=== PATIENT | male | born 1960 | race American Indian/Alaskan Native ===

== ENCOUNTER 2019-04-04 08:19 | Inpatient (IN) | payer OTHER ==
[2019-04-04] MEDS ORDERED: ASPIRIN 325 MG TAB PO ONE (08:30)
[2019-04-04 09:05] LABS: Basophils # (Auto) 0.1 K/mm3 (0.0-0.1); Basophils % (Auto) 1.1 % (0.0-1.8); Eosinophils # (Auto) 0.2 K/mm3 (0.0-0.4); Eosinophils % (Auto) 3.6 % (0.0-4.3); Hematocrit 45.5 % (35.5-45.6); Hemoglobin 15.9 gm/dl (11.8-15.2); Lymphocytes # (Auto) 2.4 K/mm3 (1.2-5.4); Lymphocytes % (Auto) 42.1 % (13.4-35.0); Mean Corpuscular HGB Conc 35 % (32-34); Mean Corpuscular Volume 97 fl (84-94); Monocytes # (Auto) 0.5 K/mm3 (0.0-0.8); Platelet Count 335 K/mm3 (140-440); Red Blood Count 4.72 M/mm3 (3.65-5.03); Red Cell Distribution Width 15.4 % (13.2-15.2)
--- NOTE | 2019-04-04 09:26 | XRay Report ---
CHEST 1 VIEW INDICATION: Chest Pain. COMPARISON: None. FINDINGS: Support devices: None. Heart: Normal. Lungs/Pleura: Diffuse bilateral pulmonary opacities are predominantly reticular. These are of uncerta in chronicity. No focal consolidation, significant effusion, or pneumothorax. IMPRESSION: 1. Age-indeterminate diffuse increased interstitial/reticular markings. If this is acute, interstitia l pneumonitis or pulmonary edema could have this appearance. Signer Name: Sourav Romero MD Signed: 04/04/2019 9:21 AM Workstation Name: [id number]
[2019-04-04 09:35] LABS: BUN/Creatinine Ratio 9; Blood Urea Nitrogen 10 mg/dL (9-20); Calcium 8.7 mg/dL (8.4-10.2); Hemolysis Index 32
[2019-04-04] MEDS ORDERED: ASPIRIN 325 MG TAB ONE (14:33)
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
[2019-04-04] MEDS ORDERED: FUROSEMIDE 40 MG/4 ML INJ IV ONE (16:24)
[2019-04-04] MEDS ORDERED: ONDANSETRON 4 MG/2 ML INJ IV PRN (19:44)
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
[2019-04-04] MEDS: FUROSEMIDE 40 MG/4 ML INJ IV SCH (21:15)
[2019-04-04] MEDS: METOPROLOL TARTRATE 25 MG TAB PO SCH (22:44)
[2019-04-04] MEDS: LISINOPRIL 40 MG TAB PO SCH (22:44)
[2019-04-05] MEDS: FUROSEMIDE 40 MG/4 ML INJ IV SCH ×2 (05:58→17:00)
[2019-04-05 10:17] LABS: BUN/Creatinine Ratio 12; Blood Urea Nitrogen 13 mg/dL (9-20); Calcium 8.3 mg/dL (8.4-10.2); Hemolysis Index 29
[2019-04-05] MEDS: LISINOPRIL 40 MG TAB PO SCH (12:28)
[2019-04-05] MEDS: METOPROLOL TARTRATE 25 MG TAB PO SCH (12:29)
--- NOTE | 2019-04-05 14:04 | Consultation ---
History of Present Illness Consult date: 04/05/19 Consult reason: congestive heart failure History of present illness: This is a 59-year old male that reports a history of congestive heart failure first diagnosed 4-5 months ago at [facility]. Records are unavailable for cardiac review. Patient has been noncompliant with his medications and has not followed up with a lead front desk agent as an outpatient. He presented to this hospital with progressive shortness of breath, lower extremity edema, admitted with CHF exacerbation. Cardiac consultation has been requested. Medications and Allergies Allergies Allergy/AdvReac Type Severity Reaction Status Date / Time No Known Allergies Allergy Unverified 04/04/19 08:28 Active Meds: Active Medications Acetaminophen (Tylenol) 650 mg PO Q4H PRN PRN Reason: Pain MILD(1-3)/Fever >100.5/DAVID Furosemide (Lasix) 40 mg IV BID@0600,1800 [facility] Last Admin: 04/05/19 05:58 Dose: 40 mg Documented by: Lisinopril (Zestril) 40 mg PO QDAY [facility] Last Admin: 04/05/19 12:28 Dose: 40 mg Documented by: Metoprolol Tartrate (Metoprolol) 12.5 mg PO BID [facility] Last Admin: 04/05/19 12:29 Dose: 12.5 mg Documented by: Ondansetron HCl (Zofran) 4 mg IV Q8H PRN PRN Reason: Nausea And Vomiting Sodium Chloride (Sodium Chloride Flush Syringe 10 Ml) 10 ml IV BID [facility] Last Admin: 04/05/19 12:29 Dose: 10 ml Documented by: Sodium Chloride (Sodium Chloride Flush Syringe 10 Ml) 10 ml IV PRN PRN PRN Reason: LINE FLUSH Physical Examination Vital Signs Temp Pulse Resp BP Pulse Ox 97.6 F 96 H 16 186/126 97 04/04/19 08:23 04/04/19 08:23 04/04/19 08:23 04/04/19 08:23 04/04/19 08:23 General appearance: no acute distress HEENT: Positive: PERRL Neck: Positive: trachea midline Cardiac: Positive: Reg Rate and Rhythm Lungs: Positive: Decreased Breath Sounds Neuro: Positive: Grossly Intact Extremities: Present: edema Results 04/04/19 08:48 04/05/19 08:23 Comprehensive Metabolic Panel 04/05/19 Range/Units 08:23 Sodium 141 (137-145) mmol/L Potassium 3.5 L D (3.6-5.0) mmol/L Chloride 101.2 (98-107) mmol/L Carbon Dioxide 22 (22-30) mmol/L BUN 13 (9-20) mg/dL Creatinine 1.1 (0.8-1.5) mg/dL Glucose 84 (75-100) mg/dL Calcium 8.3 L (8.4-10.2) mg/dL Assessment and Plan - Patient Problems (1) CHF (congestive heart failure) Current Visit: Yes Status: Acute
--- NOTE | 2019-04-05 15:52 | XRay Report ---
CHEST 2 VIEWS INDICATION: shortness of breath. COMPARISON: 04/04/2019 FINDINGS: Support devices: None. Heart: Within normal limits. Lungs/pleura: Mild pulmonary venous congestion has resolved. No infiltrate, pleural effusion or pneum othorax. Additional findings: None. IMPRESSION: Unremarkable chest films. Pulmonary venous congestion has resolved. Signer Name: Ismael Rodarte Jr, MD Signed: 04/05/2019 3:47 PM Workstation Name: [id number]
[2019-04-05] MEDS: MILRINONE-D5W 20 MG/100 ML 20 MG/100 ML BAG IV SCH (16:26)
--- NOTE | 2019-04-05 19:22 | Progress Note ---
Assessment and Plan Assessment and plan: 59-year-old man with history of CHF who presents with shortness of breath for 3 weeks. He is complaining of orthopnea, he has been sleeping in a chair. He has a history of Heart failure but has not had a prescription for Lasix in the past month. He denies any chest pain denies any cough or pleurisy. -He reports not following up with a doctor in some time because he does not have medical insurance Vitals reviewed patient has been hypertensive and tachycardic and tachypneic Labs reviewed, BNP is 5000 Chest x-ray diffuse increased interstitial/reticular markings Heart Failure -IV diuretics, , KILLIAN inhibitor and beta ch[place], -Echo, cardiology consult, will also need coronary risk stratification if work- up was not done in the past - Repeat xray Anticipate discharge in am if stable Hypertensive urgency Optimize BP meds Tobacco abuse/dependence Smoking cessation counseling performed for 10 minutes, nicotine patches when necessary DVT prophylaxis with Lovenox Nonadherence due to lack of insurance Case management consult to provide resources to patient Preventative health counseling performed for 17 minutes History Interval history: Patient seen and examined reports some improvement multiple white at baseline. Reports that he is not able to lay on his back supine. Denies any chest pain Hospitalist Physical - Physical exam Narrative exam: VITAL SIGNS: Reviewed. GENERAL: The patient appears normally developed, Vital signs as documented. HEAD: No signs of head trauma. EYES: Pupils are equal. Extraocular motions intact. EARS: Hearing grossly intact. MOUTH: Oropharynx is normal. NECK: No adenopathy, no JVD. CHEST: Chest with clear breath sounds bilaterally. No wheezes, rales, or rhonchi. CARDIAC: Regular rate and rhythm. S1 and S2, without murmurs, gallops, or rubs. VASCULAR: Trace bilateral edema. Peripheral pulses normal and equal in all extremities. ABDOMEN: Soft, non tender and non distended. No rebound or guarding, and no masses palpated. Bowel Sounds normal. MUSCULOSKELETAL: Good range of motion of all major joints. Extremities without clubbing, cyanosis. Trace bilateral edema. NEUROLOGIC EXAM: Alert and oriented x 3 No focal sensory or strength deficits. Speech normal. Follows commands. PSYCHIATRIC: Mood normal. SKIN: detial exam as documented in skin assessment - Constitutional Vitals: Temp Pulse Resp BP Pulse Ox 97.9 F 70 20 130/73 93 04/05/19 15:20 04/05/19 15:20 04/05/19 15:20 04/05/19 15:20 04/05/19 15:20 General appearance: Present: no acute distress Results - Labs CBC & Chem 7: 04/04/19 08:48 04/05/19 08:23 Labs: Laboratory Last Values WBC 5.7 K/mm3 (4.5-11.0) 04/04/19 08:48 RBC 4.72 M/mm3 (3.65-5.03) 04/04/19 08:48 Hgb 15.9 gm/dl (11.8-15.2) H 04/04/19 08:48 Hct 45.5 % (35.5-45.6) 04/04/19 08:48 MCV 97 fl (84-94) H 04/04/19 08:48 MCH 34 pg (28-32) H 04/04/19 08:48 MCHC 35 % (32-34) H 04/04/19 08:48 RDW 15.4 % (13.2-15.2) H 04/04/19 08:48 Plt Count 335 K/mm3 (140-440) 04/04/19 08:48 Lymph % (Auto) 42.1 % (13.4-35.0) H 04/04/19 08:48 [place] % (Auto) 9.0 % (0.0-7.3) H 04/04/19 08:48 Eos % (Auto) 3.6 % (0.0-4.3) 04/04/19 08:48 Baso % (Auto) 1.1 % (0.0-1.8) 04/04/19 08:48 Lymph # 2.4 K/mm3 (1.2-5.4) 04/04/19 08:48 [place] # 0.5 K/mm3 (0.0-0.8) 04/04/19 08:48 Eos # 0.2 K/mm3 (0.0-0.4) 04/04/19 08:48 Baso # 0.1 K/mm3 (0.0-0.1) 04/04/19 08:48 Seg Neutrophils % 44.2 % (40.0-70.0) 04/04/19 08:48 Seg Neutrophils # 2.5 K/mm3 (1.8-7.7) 04/04/19 08:48 Sodium 141 mmol/L (137-145) 04/05/19 08:23 Potassium 3.5 mmol/L (3.6-5.0) L D 04/05/19 08:23 Chloride 101.2 mmol/L (98-107) 04/05/19 08:23 Carbon Dioxide 22 mmol/L (22-30) 04/05/19 08:23 Anion Gap 21 mmol/L 04/05/19 08:23 BUN 13 mg/dL (9-20) 04/05/19 08:23 Creatinine 1.1 mg/dL (0.8-1.5) 04/05/19 08:23 Estimated GFR > 60 ml/min 04/05/19 08:23 BUN/Creatinine Ratio 12 % 04/05/19 08:23 Glucose 84 mg/dL (75-100) 04/05/19 08:23 Lactic Acid 0.90 mmol/L (0.7-2.0) 04/04/19 16:15 Calcium 8.3 mg/dL (8.4-10.2) L 04/05/19 08:23 Troponin T 0.013 ng/mL (0.00-0.029) 04/04/19 14:15 NT-Pro-B Natriuret Pep 5144 pg/mL (0-900) H 04/04/19 14:15 Active Medications - Current Medications Current Medications: Generic Name Dose Route Start Last Admin Trade Name Freq PRN Reason Stop Dose Admin Acetaminophen 650 mg 04/04/19 19:44 Tylenol PO Q4H PRN Pain MILD(1-3)/Fever >100.5/DAVID Carvedilol 6.25 mg 04/05/19 22:00 Coreg PO BID TARIK Furosemide 40 mg 04/04/19 19:45 04/05/19 17:00 Lasix IV 40 mg BID@0600,1800 TARIK Administration Milrinone Lactate/Dextrose 20 mg in 100 mls @ 11.277 mls/hr 04/05/19 15:00 04/05/19 16:26 Milrinone-D5w 20 Mg/100 Ml IV 04/08/19 14:59 0.375 mcg/kg/min TITR TARIK 11.277 mls/hr Administration 0.375 MCG/KG/MIN Lisinopril 40 mg 04/04/19 20:00 04/05/19 12:28 Zestril PO 40 mg QDAY TARIK Administration Ondansetron HCl 4 mg 04/04/19 19:44 Zofran IV Q8H PRN Nausea And Vomiting Sodium Chloride 10 ml 04/04/19 22:00 04/05/19 12:29 Sodium Chloride Flush Syringe 10 Ml IV 10 ml BID TARIK Administration Sodium Chloride 10 ml 04/04/19 19:44 Sodium Chloride Flush Syringe 10 Ml IV PRN PRN LINE FLUSH Spironolactone 25 mg 04/06/19 10:00 Aldactone PO QDAY TARIK
[2019-04-05] MEDS: carvediloL 6.25 MG TAB PO SCH (22:30)
[2019-04-06] MEDS: MILRINONE-D5W 20 MG/100 ML 20 MG/100 ML BAG IV SCH ×3 (00:36→16:27)
[2019-04-06] MEDS: FUROSEMIDE 40 MG/4 ML INJ IV SCH ×2 (06:33→19:50)
[2019-04-06] MEDS: ACETAMINOPHEN 325 MG TAB PO PRN (09:03)
[2019-04-06] MEDS: SPIRONOLACTONE 25 MG TAB PO SCH (09:04)
[2019-04-06] MEDS: carvediloL 6.25 MG TAB PO SCH ×2 (09:04→21:31)
[2019-04-06] MEDS: LISINOPRIL 40 MG TAB PO SCH (09:05)
--- NOTE | 2019-04-06 10:36 | Progress Note ---
Assessment and Plan Congestive heart failure Hypertension Tobacco abuse An echocardiogram this admission reports a decreased left ventricular systolic function, ejection fraction 15-20%. Recommendations: Advised fluid/sodium restrictions. Strict I's & O's. Continue aggressive medical therapy for systolic heart failure including a trial of IV milrinone therapy for an additional 48 hours. Subjective Date of service: 04/06/19 Interval history: IV milrinone continues. Patient admits he is diuresing well. No cardiac events on telemetry monitoring. Objective Vital Signs Temp Pulse Resp BP Pulse Ox 04/06/19 09:05 68 154/95 04/06/19 09:04 68 154/95 04/06/19 08:11 98.2 F 18 157/112 04/06/19 04:40 98.0 F 80 18 130/63 95 04/05/19 23:14 98.3 F 82 18 135/83 93 04/05/19 20:00 70 04/05/19 15:20 97.9 F 70 20 130/73 93 04/05/19 12:29 72 142/93 04/05/19 12:28 72 142/93 04/05/19 11:39 98.4 F 72 24 142/93 99 - Physical Examination General: No Apparent Distress HEENT: Positive: PERRL Neck: Positive: trachea midline Cardiac: Positive: Reg Rate and Rhythm Lungs: Positive: Decreased Breath Sounds Neuro: Positive: Grossly Intact Extremities: Present: edema
--- NOTE | 2019-04-06 17:05 | Progress Note ---
Subjective Date of service: 04/06/19 Interval history: 59-year-old man with history of CHF who presents with shortness of breath for 3 weeks. He is complaining of orthopnea, he has been sleeping in a chair. He has a history of Heart failure but has not had a prescription for Lasix in the past month. He denies any chest pain denies any cough or pleurisy. -He reports not following up with a doctor in some time because he does not have medical insurance Heart Failure -IV diuretics, , KILLIAN inhibitor and beta ch[place], patient is on milrinone drip - Cardiology note reviewed Plan is to discontinue milrinone drip on Tuesday and subject the patient to stress test on Tuesday Hypertensive urgency Optimize BP meds Tobacco abuse/dependence Smoking cessation counseling performed for 10 minutes, nicotine patches when necessary DVT prophylaxis with Lovenox Nonadherence due to lack of insurance Case management consult to provide resources to patient Preventative health counseling performed for 17 minutes Interval history: Patient seen and examined . Feels better. Dyspnea better and is able to ambulate in the room Reports that he is not able to lay on his back supine. Denies any chest pain Physical examination VITAL SIGNS: Reviewed. GENERAL: The patient appears normally developed, Vital signs as documented. HEAD: No signs of head trauma. EYES: Pupils are equal. Extraocular motions intact. EARS: Hearing grossly intact. MOUTH: Oropharynx is normal. NECK: No adenopathy, no JVD. CHEST: Chest with clear breath sounds bilaterally. No wheezes, rales, or rhonchi. CARDIAC: Regular rate and rhythm. S1 and S2, without murmurs, gallops, or rubs. VASCULAR: Trace bilateral edema. Peripheral pulses normal and equal in all extremities. ABDOMEN: Soft, non tender and non distended. No rebound or guarding, and no masses palpated. Bowel Sounds normal. MUSCULOSKELETAL: Good range of motion of all major joints. Extremities without clubbing, cyanosis. Trace bilateral edema. NEUROLOGIC EXAM: Alert and oriented x 3 No focal sensory or strength deficits. Speech normal. Follows commands. PSYCHIATRIC: Mood normal. SKIN: detial exam as documented in skin assessment Objective - Constitutional Vitals: Vital Signs - 12hr 04/06/19 04/06/19 04/06/19 08:11 09:04 09:05 Temperature 98.2 F Pulse Rate 68 68 Respiratory 18 Rate Blood Pressure 157/112 154/95 154/95 O2 Sat by Pulse Oximetry 04/06/19 04/06/19 12:29 16:33 Temperature 98.7 F 98.4 F Pulse Rate 61 73 Respiratory 18 18 Rate Blood Pressure 119/67 99/70 O2 Sat by Pulse 96 92 Oximetry - Labs CBC & Chem 7: 04/04/19 08:48 04/05/19 08:23
[2019-04-07] MEDS: MILRINONE-D5W 20 MG/100 ML 20 MG/100 ML BAG IV SCH ×3 (00:57→17:34)
[2019-04-07] MEDS: carvediloL 6.25 MG TAB PO SCH ×3 (00:57→22:02)
[2019-04-07] MEDS: FUROSEMIDE 40 MG/4 ML INJ IV SCH ×2 (06:46→17:34)
[2019-04-07] MEDS: ACETAMINOPHEN 325 MG TAB PO PRN (08:09)
[2019-04-07] MEDS: SPIRONOLACTONE 25 MG TAB PO SCH (10:11)
[2019-04-07] MEDS: LISINOPRIL 40 MG TAB PO SCH (10:11)
--- NOTE | 2019-04-07 14:02 | Progress Note ---
Assessment and Plan - Patient Problems (1) CHF (congestive heart failure) Current Visit: Yes Status: Acute Plan to address problem: Patient was admitted with acute on chronic systolic heart failure, due to noncompliance with his medications. Sometimes have improved on optimal guidelines directed medical therapy, we will discontinue intravenous milrinone tomorrow, and plan a predischarge Lexiscan thallium stress test on Tuesday. Subjective Date of service: 04/07/19 Interval history: Patient is comfortable, no further shortness of breath, edema is resolving. He remains on intravenous milrinone until tomorrow. Objective Vital Signs Temp Pulse Pulse Resp BP Pulse Ox 04/07/19 10:11 75 121/71 04/07/19 10:10 75 121/71 04/07/19 10:00 75 85 18 94 04/07/19 09:23 75 121/71 99 04/07/19 04:28 98.5 F 77 18 145/71 95 04/07/19 01:20 98.4 F 18 141/74 04/07/19 00:57 85 141/74 04/06/19 22:20 85 18 94 04/06/19 20:34 87 04/06/19 20:13 98.4 F 85 18 107/63 94 04/06/19 16:33 98.4 F 73 18 99/70 92 - Physical Examination General: No Apparent Distress HEENT: Positive: PERRL Neck: Positive: trachea midline Cardiac: Positive: Reg Rate and Rhythm Lungs: Positive: Decreased Breath Sounds Neuro: Positive: Grossly Intact Abdomen: Positive: Soft Skin: Positive: Clear Extremities: Present: edema (trace)
--- NOTE | 2019-04-07 15:28 | Progress Note ---
Subjective Date of service: 04/07/19 Interval history: 59-year-old man with history of CHF who presents with shortness of breath for 3 weeks. He is complaining of orthopnea, he has been sleeping in a chair. He has a history of Heart failure but has not had a prescription for Lasix in the past month. He denies any chest pain denies any cough or pleurisy. -He reports not following up with a doctor in some time because he does not have medical insurance Heart Failure -IV diuretics, , KILLIAN inhibitor and beta chino, patient is on milrinone drip - Cardiology note reviewed Plan is to discontinue milrinone drip on Tuesday and subject the patient to stress test on Tuesday Hypertensive urgency Optimize BP meds Tobacco abuse/dependence Smoking cessation counseling performed for 10 minutes, nicotine patches when necessary DVT prophylaxis with Lovenox Nonadherence due to lack of insurance Case management consult to provide resources to patient Preventative health counseling performed for 17 minutes Interval history: Patient seen and examined . Feels better. Dyspnea better and is able to ambulate in the room Reports that he is not able to lay on his back supine. Denies any chest pain Physical examination VITAL SIGNS: Reviewed. GENERAL: The patient appears normally developed, Vital signs as documented. HEAD: No signs of head trauma. EYES: Pupils are equal. Extraocular motions intact. EARS: Hearing grossly intact. MOUTH: Oropharynx is normal. NECK: No adenopathy, no JVD. CHEST: Chest with clear breath sounds bilaterally. No wheezes, rales, or rhonchi. CARDIAC: Regular rate and rhythm. S1 and S2, without murmurs, gallops, or rubs. VASCULAR: Trace bilateral edema. Peripheral pulses normal and equal in all extremities. ABDOMEN: Soft, non tender and non distended. No rebound or guarding, and no masses palpated. Bowel Sounds normal. MUSCULOSKELETAL: Good range of motion of all major joints. Extremities without clubbing, cyanosis. Trace bilateral edema. NEUROLOGIC EXAM: Alert and oriented x 3 No focal sensory or strength deficits. Speech normal. Follows commands. PSYCHIATRIC: Mood normal. SKIN: detial exam as documented in skin assessment Objective - Constitutional Vitals: Vital Signs - 12hr 04/07/19 04/07/19 04/07/19 04:28 09:23 10:00 Temperature 98.5 F Pulse Rate 77 75 75 Pulse Rate [ 85 Apical] Respiratory 18 18 Rate Blood Pressure 145/71 121/71 O2 Sat by Pulse 95 99 94 Oximetry 04/07/19 04/07/19 10:10 10:11 Temperature Pulse Rate 75 75 Pulse Rate [ Apical] Respiratory Rate Blood Pressure 121/71 121/71 O2 Sat by Pulse Oximetry - Labs CBC & Chem 7: 04/04/19 08:48 04/05/19 08:23
[2019-04-08] MEDS: MILRINONE-D5W 20 MG/100 ML 20 MG/100 ML BAG IV SCH (02:44)
[2019-04-08] MEDS: FUROSEMIDE 40 MG/4 ML INJ IV SCH ×2 (06:04→21:56)
[2019-04-08] MEDS: ACETAMINOPHEN 325 MG TAB PO PRN (06:08)
[2019-04-08 08:28] LABS: BUN/Creatinine Ratio 11; Blood Urea Nitrogen 12 mg/dL (9-20); Calcium 8.7 mg/dL (8.4-10.2); Hemolysis Index 6
[2019-04-08] MEDS: SPIRONOLACTONE 25 MG TAB PO SCH (09:42)
[2019-04-08] MEDS: carvediloL 6.25 MG TAB PO SCH ×2 (09:42→21:56)
[2019-04-08] MEDS: LISINOPRIL 40 MG TAB PO SCH (09:42)
--- NOTE | 2019-04-08 16:20 | Progress Note ---
Assessment and Plan / Acute systolic Heart Failure, Ef 15-20% -IV diuretics, , KILLIAN inhibitor and beta chino, - patient is on milrinone drip - Cardiology note reviewed Plan is to discontinue milrinone drip today and subject the patient to stress test on Tuesday /Hypertensive urgency Optimized BP meds /Tobacco abuse/dependence Smoking cessation counseling performed for 10 minutes, nicotine patches when necessary /DVT prophylaxis with Lovenox Nonadherence due to lack of insurance Case management consulted to provide resources to patient Possible discharge tomorrow after stress test Brief history: 59-year-old man with history of CHF who presents with shortness of breath for 3 weeks. He is complaining of orthopnea, he has been sleeping in a chair. He has a history of Heart failure but has not had a prescription for Lasix in the past month. He denies any chest pain denies any cough or pleurisy. -He reports not following up with a doctor in some time because he does not have medical insurance Physical examination VITAL SIGNS: Reviewed. GENERAL: The patient appears normally developed, Vital signs as documented. HEAD: No signs of head trauma. EYES: Pupils are equal. Extraocular motions intact. EARS: Hearing grossly intact. MOUTH: Oropharynx is normal. NECK: No adenopathy, no JVD. CHEST: Chest with clear breath sounds bilaterally. No wheezes, rales, or rhonchi. CARDIAC: Regular rate and rhythm. S1 and S2, without murmurs, gallops, or rubs. VASCULAR: Trace bilateral edema. Peripheral pulses normal and equal in all extremities. ABDOMEN: Soft, non tender and non distended. No rebound or guarding, and no masses palpated. Bowel Sounds normal. MUSCULOSKELETAL: Good range of motion of all major joints. Extremities without clubbing, cyanosis. Trace bilateral edema. NEUROLOGIC EXAM: Alert and oriented x 3 No focal sensory or strength deficits. Speech normal. Follows commands. PSYCHIATRIC: Mood normal. SKIN: detial exam as documented in skin assessment Subjective Date of service: 04/08/19 Interval history: Patient seen and examined . Dyspnea improved and is able to ambulate in the room Reports that he is still not able to lay on his back supine. Denies any chest pain Objective - Constitutional Vitals: Vital Signs - 12hr 04/08/19 04/08/19 04/08/19 04:27 06:08 08:27 Temperature 98.0 F 97.9 F Pulse Rate 84 59 L Respiratory 18 20 18 Rate Blood Pressure 125/60 126/64 O2 Sat by Pulse 94 94 Oximetry 04/08/19 08:50 Temperature Pulse Rate 84 Respiratory Rate Blood Pressure O2 Sat by Pulse Oximetry - Labs CBC & Chem 7: 04/04/19 08:48 04/09/19 12:50 Labs: Abnormal lab results 04/08/19 Range/Units 07:20 Sodium 135 L (137-145) mmol/L Potassium 3.4 L (3.6-5.0) mmol/L Carbon Dioxide 21 L (22-30) mmol/L Glucose 104 H (75-100) mg/dL
--- NOTE | 2019-04-08 18:00 | Progress Note ---
Assessment and Plan - Patient Problems (1) CHF (congestive heart failure) Current Visit: Yes Status: Acute Plan to address problem: Patient was admitted with acute on chronic systolic heart failure, due to noncompliance with his medications. Symptoms have improved on optimal guidelines directed medical therapy, we will plan a predischarge Lexiscan thallium stress test on Tuesday. Subjective Date of service: 04/08/19 Interval history: Patient is comfortable, no further shortness of breath, edema is resolving. We will order a Lexiscan thallium stress test for tomorrow. Objective Vital Signs Temp Pulse Resp BP Pulse Ox 04/08/19 08:50 84 04/08/19 08:27 97.9 F 59 L 18 126/64 94 04/08/19 06:08 20 04/08/19 04:27 98.0 F 84 18 125/60 94 04/08/19 00:17 98.0 F 72 18 144/79 92 04/07/19 22:02 70 127/71 04/07/19 22:00 74 04/07/19 20:00 97.8 F 70 18 127/71 91 - Physical Examination General: No Apparent Distress HEENT: Positive: PERRL Neck: Positive: trachea midline Cardiac: Positive: Reg Rate and Rhythm Lungs: Positive: Decreased Breath Sounds Neuro: Positive: Grossly Intact Abdomen: Positive: Soft Skin: Positive: Clear Extremities: Present: edema (trace) - Labs and Meds Comprehensive Metabolic Panel 04/08/19 Range/Units 07:20 Sodium 135 L (137-145) mmol/L Potassium 3.4 L (3.6-5.0) mmol/L Chloride 98.9 (98-107) mmol/L Carbon Dioxide 21 L (22-30) mmol/L BUN 12 (9-20) mg/dL Creatinine 1.1 (0.8-1.5) mg/dL Glucose 104 H (75-100) mg/dL Calcium 8.7 (8.4-10.2) mg/dL
[2019-04-08] MEDS ORDERED: MILRINONE-D5W 20 MG/100 ML 20 MG/100 ML BAG IV ONE (18:22)
[2019-04-09] MEDS: FUROSEMIDE 40 MG/4 ML INJ IV SCH (05:14)
--- NOTE | 2019-04-09 11:38 | Event Note ---
Date: 04/09/19 The patient was scheduled for Lexiscan thallium stress test today, but inadvertently at breakfast prior to the test. The Lexiscan thallium test is canceled for today, reschedule for tomorrow morning. However patient declines further hospitalization, wants to go home and return for Lexiscan as outpatient. On discharge please continue guideline directed medical therapy for chronic systolic left ventricular failure. Lisinopril, carvedilol, furosemide, spironolactone and aspirin.
[2019-04-09] MEDS: LISINOPRIL 40 MG TAB PO SCH (13:19)
[2019-04-09] MEDS: carvediloL 6.25 MG TAB PO SCH (13:19)
[2019-04-09 13:20] LABS: BUN/Creatinine Ratio 15; Blood Urea Nitrogen 16 mg/dL (9-20); Calcium 9.4 mg/dL (8.4-10.2); Hemolysis Index 19
[2019-04-09] MEDS: SPIRONOLACTONE 25 MG TAB PO SCH (13:20)
--- NOTE | 2019-04-09 13:52 | Discharge Summary ---
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 Needs outpatient resources for clinic visits and meds Primary care physician: RANCH COOK Hospitalization Condition: Fair Pertinent studies: CXR 2d echo Hospital course: 59-year-old man with history of CHF who presents with shortness of breath for 3 weeks. He is complaining of orthopnea, he has been sleeping in a chair. He has a history of Heart failure but has not had a prescription for Lasix in the past month. He denies any chest pain denies any cough or pleurisy. -He reports not following up with a doctor in some time because he does not have medical insurance. Discharge diagnosis and Mx: / Acute systolic Heart Failure, Ef 15-20% -Placed on IV diuretics, , KILLIAN inhibitor and beta chino, - Patient is s/p milrinone drip - Plan was to obtain stress test on Tuesday, but patient ate breakfast and wanted to get the test as outpt. /Hypertensive urgency Optimized BP meds /Tobacco abuse/dependence Smoking cessation counseling performed for 10 minutes, nicotine patches when necessary /DVT prophylaxis with Lovenox Nonadherence due to lack of insurance Case management consulted to provide resources to patient discharged home with outpt f/u in stable condition Physical examination VITAL SIGNS: Reviewed. GENERAL: The patient appears normally developed, Vital signs as documented. HEAD: No signs of head trauma. EYES: Pupils are equal. Extraocular motions intact. EARS: Hearing grossly intact. MOUTH: Oropharynx is normal. NECK: No adenopathy, no JVD. CHEST: Chest with clear breath sounds bilaterally. No wheezes, rales, or rhonchi. CARDIAC: Regular rate and rhythm. S1 and S2, without murmurs, gallops, or rubs. VASCULAR: Trace bilateral edema. Peripheral pulses normal and equal in all extremities. ABDOMEN: Soft, non tender and non distended. No rebound or guarding, and no masses palpated. Bowel Sounds normal. MUSCULOSKELETAL: Good range of motion of all major joints. Extremities without clubbing, cyanosis. Trace bilateral edema. NEUROLOGIC EXAM: Alert and oriented x 3 No focal sensory or strength deficits. Speech normal. Follows commands. PSYCHIATRIC: Mood normal. SKIN: detial exam as documented in skin assessment Disposition: DC-01 TO HOME OR SELFCARE Time spent for discharge: 34 minutes Core Measure Documentation - Palliative Care Palliative Care/ Comfort Measures: Not Applicable - Core Measures Any of the following diagnoses?: heart failure - Heart Failure Discharge Requirements KILLIAN/ARB for LVSD if EF <40%: Yes Beta chino at discharge: Yes Exam - Constitutional Vitals: Temp Pulse Resp BP Pulse Ox 98.8 F 81 20 127/85 96 04/09/19 05:33 04/09/19 13:20 04/09/19 05:33 04/09/19 13:20 04/09/19 00:47 Plan Activity: advance as tolerated Weight Bearing Status: Weight Bear as Tolerated Diet: low fat, low salt Special Instructions: restrict fluid intake to (1.2L per day), record daily BP diary Follow up with: PRIMARY CAREMD [Primary Care Provider] - 3-5 Days DOTTIE ELIAS MD [Staff Physician] - 7 Days Prescriptions: Spironolactone [Aldactone] 25 mg PO QDAY #30 tablet carvediloL [Coreg] 6.25 mg PO BID #60 tablet Aspirin EC [Halfprin EC] 81 mg PO QDAY #30 tablet. Furosemide [Lasix TAB] 40 mg PO BID #60 tablet lisinopriL [Zestril TAB] 40 mg PO QDAY #30 tablet
[2019-04-09 17:49] VITALS: BP 119/78
== END 2019-04-09 21:01 | disposition home or self-care (01) | DRG 293 ==
LOC: ED 08:19 → 4A 16:39
PROVIDERS: ADMIT Internal Medicine; ATTEND Internal Medicine
DX: I11.0 Hypertensive heart disease with heart failure (principal); I16.0 Hypertensive urgency; F17.200 Nicotine dependence, unspecified, uncomplicated; I50.23 Acute on chronic systolic (congestive) heart failure; Z71.6 Tobacco abuse counseling; Z91.14 Patient's other noncompliance with medication regimen; Z82.49 Family history of ischemic heart disease and other diseases of the circulatory system
CPT/HCPCS: 36415; 71045; 71046; 80048; 82140; 83880; 84484; 85025; 87040; 87116; 93005; 93010; 93306; 96374; 99406; G0378; J1940; J2260

== ENCOUNTER 2019-12-06 13:59 | Emergency (ER) | payer SELFPAY ==
--- NOTE | 2019-12-06 14:36 | XRay Report ---
CHEST 1 VIEW INDICATION: Chest Pain. COMPARISON: 10/15/2019 FINDINGS: Support devices: None. Heart: Normal. Lungs/Pleura: No acute pulmonary or pleural findings. IMPRESSION: 1. No acute findings. Signer Name: Sourav Romero MD Signed: 12/06/2019 2:31 PM Workstation Name: [id number]
[2019-12-06 14:40] LABS: Basophils # (Auto) 0.1 K/mm3 (0.0-0.1); Basophils % (Auto) 0.8 % (0.0-1.8); Eosinophils # (Auto) 0.2 K/mm3 (0.0-0.4); Eosinophils % (Auto) 2.6 % (0.0-4.3); Hematocrit 49.5 % (35.5-45.6); Hemoglobin 16.7 gm/dl (11.8-15.2); Lymphocytes # (Auto) 2.5 K/mm3 (1.2-5.4); Lymphocytes % (Auto) 40.5 % (13.4-35.0); Mean Corpuscular HGB Conc 34 % (32-34); Mean Corpuscular Volume 95 fl (84-94); Monocytes # (Auto) 0.7 K/mm3 (0.0-0.8); Monocytes % (Auto) 11.9 % (0.0-7.3); Platelet Count 323 K/mm3 (140-440); Red Blood Count 5.21 M/mm3 (3.65-5.03); Red Cell Distribution Width 14.2 % (13.2-15.2)
[2019-12-06 15:02] LABS: Alanine Aminotransferase 14 units/L (7-56); Albumin 4.2 g/dL (3.9-5); BUN/Creatinine Ratio 12; Blood Urea Nitrogen 13 mg/dL (9-20); Calcium 9.5 mg/dL (8.4-10.2); Hemolysis Index 10
[2019-12-06] MEDS ORDERED: SODIUM CHLORIDE 0.9% 1000 ML 1,000 ML IV ONE (16:28)
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
--- NOTE | 2019-12-06 17:10 | Cat Scan Report ---
NONENHANCED CT SCAN OF THE BRAIN: INDICATION: elevated bp, expressive aphasia. TECHNIQUE: Routine CT head without contrast. Sagittal and coronal reformatted images were obtained. A ll CT scans at this location are performed using CT dose reduction for ALARA by means of automated ex posure control. COMPARISON: None. FINDINGS: BRAIN / INTRACRANIAL CONTENTS: Hemorrhage:No intracranial hemorrhage; no subarachnoid hemorrhage Stroke mimics: No subdural or epidural hematoma or space taking lesion Acute/subacute territorial infarction: [place]-white matter interface: No blurring; normal Insular cortex: Normal Basal ganglia: Normal Wedge shaped parenchymal low density area: Not present Cortical sulci: Not effaced Lacunar infarctions: No acute lacunar infarction Vasculopathy: Dense middle cerebral artery sign: Not present Internal carotid artery terminus: Normal Basilar artery:Normal Middle cerebral artery branches in the sylvian fissure (Dot sign): Normal Calcified embolus: There may be calcified embolus in the right frontal region in the central sulcu s. ASPECT score: 10 Chronic lesions:None White matter: Craniocervical junction:No significant abnormality Orbits:No significant abnormality Paranasal sinuses/mastoids: Significant mucosal disease in the right maxillary sinus and in the sphen oid sinus in the median chamber of right side Additional findings: None IMPRESSION: No intracerebral hemorrhage; no stroke mimics No CT findings to suggest acute/subacute territorial infarction This exam was performed as part of a code stroke protocol. The exam was completed at [facility] on 12/06/2019 3:59 PM. The exam was reviewed at 4:04 PM and ER physician was notified at 4:05 PM. Signer Name: Ignacia Perdomo MD Signed: 12/06/2019 5:06 PM Workstation Name: [email or web address]
[2019-12-06 19:04] VITALS: BP 166/88
== END 2019-12-06 19:45 | disposition home or self-care (01) ==
LOC: ED 13:59
DX: T67.5XXA Heat exhaustion, unspecified, initial encounter (principal); I16.0 Hypertensive urgency; R07.89 Other chest pain; X58.XXXA Exposure to other specified factors, initial encounter
CPT/HCPCS: 36415; 70450; 71045; 80053; 84484; 85025; 93005; 96361; 96374; 99285; J7030

== ENCOUNTER 2020-03-31 11:24 | Emergency (ER) | payer SELFPAY ==
--- NOTE | 2020-03-31 13:13 | Emergency Department Report ---
Blank Doc - Documentation Documentation: 60-year-old male that presents with chest pain and SOB. Has been out of his CHF medications. This initial assessment/diagnostic orders/clinical plan/treatment(s) is/are subject to change based on patient's health status, clinical progression and re- assessment by fellow clinical providers in the ED. Further treatment and workup at subsequent clinical providers discretion. Patient/guardians urged not to elope from the ED as their condition may be serious if not clinically assessed and managed. Initial orders include: 1- Patient sent to MAIN ED for further evaluation and treatment 2- cardiac workup
[2020-03-31 13:54] LABS: Basophils # (Auto) 0.1 K/mm3 (0.0-0.1); Basophils % (Auto) 0.9 % (0.0-1.8); Eosinophils # (Auto) 0.1 K/mm3 (0.0-0.4); Eosinophils % (Auto) 1.6 % (0.0-4.3); Hematocrit 48.5 % (35.5-45.6); Hemoglobin 16.5 gm/dl (11.8-15.2); Lymphocytes # (Auto) 2.2 K/mm3 (1.2-5.4); Lymphocytes % (Auto) 25.6 % (13.4-35.0); Mean Corpuscular HGB Conc 34 % (32-34); Mean Corpuscular Volume 96 fl (84-94); Monocytes # (Auto) 0.8 K/mm3 (0.0-0.8); Platelet Count 304 K/mm3 (140-440); Red Blood Count 5.03 M/mm3 (3.65-5.03); Red Cell Distribution Width 14.3 % (13.2-15.2)
[2020-03-31 14:03] LABS: INR 0.98 (0.87-1.13)
[2020-03-31 14:04] LABS: Partial Thromboplastin Time 28.5 Sec. (24.2-36.6)
[2020-03-31 14:19] LABS: Alanine Aminotransferase 10 units/L (7-56); Albumin 4.1 g/dL (3.9-5); BUN/Creatinine Ratio 8; Blood Urea Nitrogen 11 mg/dL (9-20); Calcium 9.4 mg/dL (8.4-10.2); Hemolysis Index 12
--- NOTE | 2020-03-31 14:27 | XRay Report ---
CHEST 2 VIEWS INDICATION / CLINICAL INFORMATION: Chest Pain. COMPARISON: 12/06/2019 FINDINGS: SUPPORT DEVICES: None. HEART / MEDIASTINUM: No significant abnormality. LUNGS / PLEURA: Mild new increased interstitial markings No pneumothorax. ADDITIONAL FINDINGS: No significant additional findings. IMPRESSION: 1. Mild new increased interstitial prominence. Differential considerations would include pulmonary ed vincent versus interstitial disease. Follow-up chest x-ray or CT chest recommended Signer Name: Remington More MD Signed: 03/31/2020 2:23 PM Workstation Name: [id number]
[2020-03-31 14:31] LABS: Chol/HDL Ratio 3.26 %; HDL Cholesterol 63 mg/dL (40-59); LDL Cholesterol,Direct 137 mg/dL (50-130)
[2020-03-31] MEDS ORDERED: FUROSEMIDE 40 MG/4 ML INJ IV ONE (15:02)
[2020-03-31] MEDS ORDERED: ASPIRIN 325 MG TAB PO ONE (15:19)
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
[2020-03-31 16:39] VITALS: BP 156/97
== END 2020-03-31 16:38 | disposition home or self-care (01) ==
LOC: ED 11:24
DX: I11.0 Hypertensive heart disease with heart failure (principal); I50.9 Heart failure, unspecified; Z79.899 Other long term (current) drug therapy; Z98.890 Other specified postprocedural states
CPT/HCPCS: 36415; 71046; 80053; 80061; 83735; 83880; 84484; 85025; 85610; 85730; 93005; 96374; 99284; J1940

== ENCOUNTER 2020-07-05 11:41 | Emergency (ER) | payer SELFPAY ==
[2020-07-05] MEDS ORDERED: ASPIRIN 325 MG TAB PO ONE (12:21)
--- NOTE | 2020-07-05 12:24 | Event Note ---
ED Screening Note Date of service: 07/05/20 Time: 12:22 ED Screening Note: 60-year-old male with a past medical history of CHF and hypertension Complains of chest tightness, shortness of breath, cough, dizziness, and mild lower extremity swelling Onset of symptoms about 1 to 2 weeks ago Patient states that has been out of all his medication for the past 2 weeks This initial assessment/diagnostic orders/clinical plan/treatment(s) is/are subject to change based on patients health status, clinical progression and re- assessment by fellow clinical providers in the ED. Further treatment and workup at subsequent clinical providers discretion. Patient/guardian urged not to elope from the ED as their condition may be serious if not clinically assessed and managed. Initial orders include: Chest pain order set including BNP
--- NOTE | 2020-07-05 12:51 | XRay Report ---
CHEST 2 VIEWS INDICATION / CLINICAL INFORMATION: Chest Pain. COMPARISON: 03/31/2020 FINDINGS: SUPPORT DEVICES: None. HEART / MEDIASTINUM: No significant abnormality. LUNGS / PLEURA: Increased interstitial prominence in bilateral lungs persist No pneumothorax. ADDITIONAL FINDINGS: No significant additional findings. IMPRESSION: No significant interval change. Signer Name: Pascual Paez MD Signed: 07/05/2020 12:46 PM Workstation Name: [id number]
[2020-07-05 14:39] LABS: Basophils % (Auto) 0.6 % (0.0-1.8); Eosinophils # (Auto) 0.1 K/mm3 (0.0-0.4); Eosinophils % (Auto) 1.4 % (0.0-4.3); Hematocrit 49.9 % (35.5-45.6); Hemoglobin 16.6 gm/dl (11.8-15.2); Lymphocytes # (Auto) 2.1 K/mm3 (1.2-5.4); Lymphocytes % (Auto) 28.6 % (13.4-35.0); Mean Corpuscular HGB Conc 33 % (32-34); Mean Corpuscular Volume 95 fl (84-94); Monocytes # (Auto) 0.8 K/mm3 (0.0-0.8); Monocytes % (Auto) 11.5 % (0.0-7.3); Platelet Count 366 K/mm3 (140-440); Red Blood Count 5.26 M/mm3 (3.65-5.03); Red Cell Distribution Width 14.4 % (13.2-15.2)
[2020-07-05 15:05] LABS: Alanine Aminotransferase 8 units/L (7-56); Albumin 4.4 g/dL (3.9-5); BUN/Creatinine Ratio 8; Blood Urea Nitrogen 10 mg/dL (9-20); Calcium 9.5 mg/dL (8.4-10.2); Hemolysis Index 2
[2020-07-05 15:17] LABS: Chol/HDL Ratio 4.14 %; HDL Cholesterol 54 mg/dL (40-59); LDL Cholesterol,Direct 163 mg/dL (50-130)
[2020-07-05] MEDS ORDERED: ASPIRIN 325 MG TAB ONE (18:31)
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
[2020-07-05 21:40] VITALS: BP 176/86
== END 2020-07-05 21:42 | disposition home or self-care (01) ==
LOC: ED 11:41
DX: I11.0 Hypertensive heart disease with heart failure (principal); I50.9 Heart failure, unspecified; F17.200 Nicotine dependence, unspecified, uncomplicated; Z98.890 Other specified postprocedural states; Z79.899 Other long term (current) drug therapy
CPT/HCPCS: 36415; 71046; 80053; 80061; 83690; 83880; 84484; 85025; 93005